=== PATIENT | male | born 2000 | race African-American/Black ===

== ENCOUNTER 2022-10-09 12:27 | Emergency (ER) | payer OTHER, SELFPAY ==
[2022-10-09 12:28] VITALS: BP 124/95; PULSE 80; RESP 17; TEMP 36.1; O2SAT 100
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
[2022-10-09] MEDS: KETOROLAC 30 MG/ML VIAL (*BKC) IM (13:01)
[2022-10-09 13:18] LABS: Basophils Absolute Auto 0.1 K/mm3 (0.0-0.1); Basophils Percent Auto 0.9 % (0.2-1.2); Eosinophils Absolute Auto 0.4 K/mm3 (0-0.3); Eosinophils Percent Auto 3.2 % (0-4.4); Hematocrit 38.1 % (42.0-52.0); Hemoglobin 12.9 g/dL (14.0-18.0); Immature Granulocyte Absolute 0.18 K/mm3 (0.00-0.031); Immature Granulocyte Percent A 1.5 % (0-0.5); Lymphocytes Absolute Auto 1.75 K/mm3 (0.9-3.2); Lymphocytes Percent Auto 14.5 % (18.3-44.2); Mean Corpuscular HGB Conc 33.9 g/dl (32-36); Mean Corpuscular Hemoglobin 28.5 pg (26-34); Mean Corpuscular Volume 84.3 fl (80-100); Mean Platelet Volume 9.7 fl (7.4-10.4); Monocytes Absolute Auto 1.1 K/mm3 (0.1-0.6); Neutrophils Absolute Auto 8.6 K/mm3 (1.3-6.7); Neutrophils Percent Auto 70.9 % (45.5-73.1); Platelet Count Result 235 k/mm3 (150-375); Red Blood Count 4.52 M/mm3 (4.6-6.20); Red Cell Distribution Width 13.4 % (11.5-14.5); White Blood Count 12.1 K/mm3 (4.5-10.0)
[2022-10-09 13:29] LABS: Alanine Aminotransferase 58 U/L (6-50); Albumin Level 3.9 g/dL (3.5-5.1); Alkaline Phosphatase 84 U/L (38-126); Anion Gap 7 mmol/L (8-16); Aspartate Amino Transferase 26 U/L (17-59); Bilirubin,Total 0.1 mg/dL (0.2-1.3); Blood Urea Nitrogen 15 mg/dL (9-20); Carbon Dioxide 26 mmol/L (22-30); Chloride 105 mmol/L (98-107); Creatine Kinase 93 U/L (55-170); Estimated Glomerular Filt Rate > 60; Glucose 77 mg/dL (65-110); Potassium 3.8 mmol/L (3.4-5.0); Sodium 138 mmol/L (137-145)
[2022-10-09] MEDS: CYCLOBENZAPRINE HCL 10 MG TABLET PO (14:06)
[2022-10-09 14:15] VITALS: BP 128/88; PULSE 80; RESP 16; O2SAT 98
== END 2022-10-09 14:17 | disposition home or self-care (01) ==
PROVIDERS: Emergency Provider Emergency Medicine
DX: M79.605 Pain in left leg (principal); M79.604 Pain in right leg
CPT/HCPCS: 36415; 80053; 82550; 85025; 96372; 99283; A9270; J1885

== ENCOUNTER 2023-10-20 17:24 | Emergency (ER) | payer OTHER, SELFPAY ==
[2023-10-20] VITALS (9 sets, daily range): BP systolic 128; BP diastolic 68; PULSE 108; RESP 20; TEMP 36.3; O2SAT 98–100
--- NOTE | 2023-10-20 21:38 | ED.ASTHMA ---
HPI - Asthma General Chief Complaint: Asthma Stated Complaint: asthma Time Seen by Provider: 10/20/23 21:16 Source: patient Mode of arrival: ambulatory Limitations: no limitations History of Present Illness HPI Narrative: 23yo with asthma presents with report of difficulty breathing while playing basketball earlier. Notes that exercise is a trigger for him. Recently placed in [facility] but does not have his medications. Uses only an albuterol inhaler PRN at baseline. Never been intubated or on bipap for an exacerbation. States he had a cough earlier around the time he was playing basketball but not now. NO fevers. His meds will arrive on Monday. No allergies. Related Data Allergies Allergy/AdvReac Type Severity Reaction Status Date / Time No Known Allergies Allergy Unverified 09/28/16 01:23 [facility] Past Medical History Medical History Asthma Social History Social History Additional living arrangements comments: Resident at [facility] October 2023 Exam Narrative: GENERAL: Well-appearing, well-nourished, and in no acute distress. HEAD: Normocephalic, atraumatic. EYES: Non injected, non icteric ENT: Nares clear, no rhinorrhea or epistaxis. NECK: Supple. CHEST: Speaking in full sentences. No respiratory distress. Lungs clear to auscultation bilaterally without wheezes. No focal consolidation or crackles. Can appreciate a faint wheeze when patient instructed to force a cough. HEART: Tachycardic rate initially intraige but normalized at the time of exam . ABDOMEN: Soft, nondistended. EXTREMITIES: Normal range of motion. No lower extremity edema. SKIN: Warm, dry, no rash. NEURO: No focal deficits. Alert and oriented x3. PSYCH: Normal mood and affect. Course Vital Signs Vital signs: Vital Signs Temperature 97.4 F L 10/20/23 17:30 Pulse Rate 108 H 10/20/23 17:30 Respiratory Rate 20 10/20/23 17:30 Blood Pressure 128/68 10/20/23 17:30 Pulse Oximetry 98 10/20/23 17:30 Oxygen Delivery Room Air 10/20/23 17:30 Temperature 97.9 F 10/21/23 00:13 Pulse Rate 86 10/21/23 00:13 Respiratory Rate 16 10/21/23 00:13 Blood Pressure 110/79 10/21/23 00:13 Pulse Oximetry 98 10/21/23 00:13 Oxygen Delivery Room Air 10/20/23 23:36 MDM - Asthma MDM Narrative Medical decision making narrative: The patient presented with cough most likely due to a mild asthma exacerbation. No altered mental status, silent respirations, abdominal breathing, or evidence of impending respiratory failure. Additionally, the patient has never required intubation or bipap for an exacerbation. Patient states symptoms have resolved but he does not have his medications at [facility] (not due to arrive until Monday). Initially mildly tachycardic but resolved at the time of exam and without tachypnea or respiratory distress. No wheezes on exam except for during forced cough. The patient received the following therapies Prednisone 40 mg p.o. albuterol 2.5 mg Will defer labs and imaging at this time given clinical picture consistent with exacerbation of asthma with similar exacerbation presentations per patient. Discharged in stable condition with albuterol inhaler refill and short course of steroids. Differential Diagnosis Differential diagnosis: Likely Acute exacerbation Discharge Plan Discharge Clinical Impression: Asthma, Encounter for medication refill Patient Disposition: Home, Self-Care Condition: Stable Instructions: Antibiotic Form, Asthma (DC), Exercise-Induced Bronchoconstriction (ED), How to Use a Metered-Dose Inhaler and a Spacer (DC) Additional Instructions: You are being provided a prescription for refill of your albuterol inhaler for your asthma. FOr this acute mild exacerbation, you received your first dose of steroids with the rest of the course prescribed. Up with primary
[2023-10-20] MEDS: predniSONE 20 MG TABLET 40 MG PO (22:10)
[2023-10-20] MEDS: ALBUTEROL SULFATE (*SP) AEROSOL 1 PUFF 2 PUFF INHALATION (23:01)
[2023-10-21 00:13] VITALS: BP 110/79; PULSE 86; RESP 16; TEMP 36.6; O2SAT 98
== END 2023-10-21 00:15 | disposition home or self-care (01) ==
PROVIDERS: Emergency Provider Student in an Organized Health Care Education/Training Program
DX: J45.909 Unspecified asthma, uncomplicated (principal); Z76.0 Encounter for issue of repeat prescription
CPT/HCPCS: 99283; A9270; J7512